=== PATIENT | female | born 1965 | race Caucasian/White ===

== ENCOUNTER 2019-03-24 17:09 | Emergency (ER) | payer MEDICAID ==
[~2019-03-24] VITALS: Ht 165.1 cm; Wt 90.7 kg
[2019-03-24 17:21] VITALS: BP_SYST 113
[2019-03-24] MEDS ORDERED: NACL 0.9% 1,000 ML IV ONE (17:23)
[2019-03-24] MEDS ORDERED: LEVOFLOXACIN 500 MG/D5W 100 ML IV ONE (17:30)
[2019-03-24 17:47] LABS: BASOPHILS # (AUTO) 0.1 K/uL (0.0-0.2); BASOPHILS % (AUTO) 0.8 % (0.0-2.0); EOSINOPHILS # (AUTO) 0.1 K/uL (0.0-0.4); HEMATOCRIT 41.2 % (36-48); HEMOGLOBIN 13.9 g/dL (12.0-16.0); LYMPHOCYTES # (AUTO) 2.1 K/uL (1.0-5.5); LYMPHOCYTES % (AUTO) 30.3 % (20.5-51.5); MEAN CORPUSCULAR HEMOGLOBIN 32 pg (27-31); MEAN CORPUSCULAR HGB CONC 34 % (32-36); MEAN CORPUSCULAR VOLUME 96 fL (79.0-98.0); MONOCYTES # (AUTO) 0.4 K/uL (0.0-1.0); MONOCYTES % (AUTO) 5.1 % (1.7-9.3); NEUTROPHILS # (AUTO) 4.4 K/uL (1.8-7.7); NEUTROPHILS % (AUTO) 62.8 % (40.0-70.0); PLATELET COUNT (AUTO) 175 K/uL (130-430); RED CELL DISTRIBUTION WIDTH 15.8 % (9.0-15.0)
[2019-03-24 18:10] LABS: CALCIUM 9.5 mg/dL (8.4-11.0); CREATININE 0.72 mg/dL (0.55-1.30)
[2019-03-24 18:16] LABS: ALBUMIN 3.6 g/dL (3.4-4.8); TOTAL BILIRUBIN 0.5 mg/dL (0.0-1.0)
[2019-03-24] MEDS ORDERED: VANCOMYCIN HCL 1,000 MG in NS 250 ML IV ONE (18:45)
[2019-03-24 18:51] LABS: BILIRUBIN,URINE 1+ (NEGATIVE); BLOOD, URINE NEGATIVE (NEGATIVE); CLARITY/URINE HAZY (CLEAR); COLOR,URINE AMBER (YELLOW); GLUCOSE,URINE NEGATIVE (NEGATIVE); KETONES,URINE 1+ (NEGATIVE); LEUKOCYTE ESTERASE ,URINE TRACE (NEGATIVE); NITRITE, URINE NEGATIVE (NEGATIVE); PH,URINE 5.5 (5.0-8.0); PROTEIN URINE TRACE (NEGATIVE); UROBILINOGEN,URINE 0.2 (0.2-1.0)
[2019-03-24 18:57] LABS: BACTERIA,URINE FEW /HPF (None Seen); MUCUS,URINE 3+ /LPF (None Seen); RBC,URINE 0-3 /HPF (0-3)
[2019-03-24] MEDS ORDERED: metroNIDAZOLE 500 mg/NS 100 ML IV ONE (19:30)
[2019-03-24] MEDS ORDERED: WELSR150 PO ×2 (19:35→19:58)
[2019-03-24] MEDS ORDERED: LEVO25TA7 PO (19:35)
[2019-03-24] MEDS ORDERED: IMI50 PO (19:35)
[2019-03-24] MEDS ORDERED: GLIP10TA PO ×2 (19:35)
[2019-03-24] MEDS ORDERED: SIMV40TA2 PO (19:35)
[2019-03-24] MEDS ORDERED: METF1000 PO (19:35)
[2019-03-24] MEDS ORDERED: DIVA-74 PO ×2 (19:35→19:58)
[2019-03-24] MEDS ORDERED: BACL10TA PO (19:35)
[2019-03-24] MEDS ORDERED: QUET400T PO ×2 (19:35→19:58)
[2019-03-24] MEDS ORDERED: CLON0.5T12 PO ×3 (19:35→19:58)
[2019-03-24] MEDS ORDERED: METH2.5T PO (19:35)
[2019-03-24] MEDS ORDERED: LISI-209 PO (19:35)
[2019-03-24] MEDS ORDERED: GABA-531 PO (19:35)
[2019-03-24] MEDS ORDERED: ACET-73 PO ×2 (19:35→19:58)
[2019-03-24] MEDS ORDERED: ASPI-1153 PO (19:35)
[2019-03-24] MEDS ORDERED: AZU500 PO (19:35)
[2019-03-24] MEDS ORDERED: VANCOMYCIN HCL 1000 MG/VIAL IV ONE ×2 (19:53)
[2019-03-24] MEDS ORDERED: GLIP10TA11 PO ×2 (19:58)
[2019-03-24] MEDS ORDERED: GLU500 PO (19:58)
[2019-03-24] MEDS: ACETAMINOPHEN 500 MG TABLET PO ONE ×2 (20:28→20:32)
[2019-03-24] MEDS ORDERED: ACETAMINOPHEN/CODEINE 300 MG-30 MG TABLET PO ONE (20:30)
[2019-03-24] MEDS ORDERED: MORPHINE 4 MG/ML INJ. SYRINGE IVP ONE (20:45)
[2019-03-24] MEDS ORDERED: KETOROLAC TROMETHAMINE 30 MG VIAL IVP ONE (20:45)
[2019-03-24 22:21] VITALS: BP_SYST 110
== END 2019-03-24 22:24 | disposition home or self-care (01) ==
LOC: SED 17:09
DX: K52.9 Noninfective gastroenteritis and colitis, unspecified (principal); N39.0 Urinary tract infection, site not specified; E78.5 Hyperlipidemia, unspecified; F31.9 Bipolar disorder, unspecified; Z90.710 Acquired absence of both cervix and uterus; Z79.82 Long term (current) use of aspirin; Z79.899 Other long term (current) drug therapy
CPT/HCPCS: 36415; 71045; 80053; 81000; 83605; 85025; 87040; 87086; 93005; 96365; 96367; 96375; 99284; J1885; J1956; J2270; J3370; J3490; J7030

== ENCOUNTER 2019-05-11 14:48 | Emergency (ER) | payer MEDICAID ==
[~2019-05-11] VITALS: Ht 167.6 cm; Wt 88.5 kg
[~2019-05-11 14:48] MED LIST: ACET-73 PO; ASPI-1153 PO; AZU500 PO; BACL10TA PO; CLON0.5T12 PO; DIVA-74 PO; GABA-531 PO; GLIP10TA PO; GLIP10TA11 PO; GLU500 PO; IMI50 PO; LEVO25TA7 PO; LISI-209 PO; METH2.5T PO; QUET400T PO; SIMV40TA2 PO; WELSR150 PO
[2019-05-11 15:11] VITALS: BP_SYST 103
--- NOTE | 2019-05-11 15:46 | NUR ---
Patient to ER bed 6 to gown for evaluation. Side rails up. Report given to Damian REARDON.
--- NOTE | 2019-05-11 15:50 | NUR ---
EMIGDIO Coats at bedside examining patient.
--- NOTE | 2019-05-11 16:00 | NUR ---
Pt presents to ED c/o pelvic pain radiating to back urinary symptoms.
[2019-05-11] MEDS ORDERED: PHENAZOPYRIDINE HCL 100 MG TABLET PO ONE (16:15)
[2019-05-11] MEDS ORDERED: CIPROFLOXACIN HCL 500 MG TABLET PO ONE (16:15)
[2019-05-11] MEDS ORDERED: HYDROcodone/ACETAMIN 5-325 MG TAB (NORCO/ VICODIN) PO ONE (16:15)
--- NOTE | 2019-05-11 16:30 | NUR ---
Pt medicated tolerated well.
[2019-05-11 17:00] VITALS: BP_SYST 103
--- NOTE | 2019-05-11 17:00 | NUR ---
Patient given written and verbal discharge instructions and verbalizes understanding. ER MD discussed with patient the results and treatment provided. Patient in stable condition. ID arm band removed. Rx of cipro,pyridium,zofran given. Patient educated on pain management and to follow up with PMD. Pain Scale 2. Opportunity for questions provided and answered. Medication side effect fact sheet provided.
== END 2019-05-11 17:00 | disposition home or self-care (01) ==
LOC: SED 14:48
DX: N39.0 Urinary tract infection, site not specified (principal); E11.9 Type 2 diabetes mellitus without complications; R11.0 Nausea; R68.83 Chills (without fever); I10 Essential (primary) hypertension; E78.5 Hyperlipidemia, unspecified; F31.9 Bipolar disorder, unspecified; Z79.82 Long term (current) use of aspirin; Z79.899 Other long term (current) drug therapy
CPT/HCPCS: 81002; 81025; 99284